=== PATIENT | male | born 1930 | race Caucasian/White ===

== ENCOUNTER 2017-04-09 13:17 | Emergency (ER) | payer MEDICARE, OTHER ==
[~2017-04-09] VITALS: Ht 165.1 cm; Wt 70.0 kg
[2017-04-09] MEDS ORDERED: SODIUM CHLORIDE FLUSH 10ML SYR IVF ONE (14:00)
[2017-04-09] MEDS ORDERED: KETOROLAC 30 MG/1 ML IVPush ONE (14:00)
[2017-04-09] MEDS ORDERED: KETOROLAC 30 MG/1 ML ONE (14:35)
[2017-04-09 14:44] LABS: BLOOD UREA NITROGEN 20 mg/dL (7-18)
[2017-04-09 14:50] LABS: IS PT STATUS REG ER OR PRE ER? YES
[2017-04-09 16:38] VITALS: BP 169/91
== END 2017-04-09 16:41 | disposition home or self-care (01) ==
LOC: ED 16:35
DX: L03.116 Cellulitis of left lower limb (principal)
CPT/HCPCS: 36415; 71010; 73610; 80048; 82040; 83605; 83880; 84484; 85025; 93005; 96374; 99285; J1885

== ENCOUNTER 2017-04-10 11:31 | Emergency (ER) | payer MEDICARE, OTHER ==
[~2017-04-10] VITALS: Ht 165.1 cm; Wt 68.1 kg
[2017-04-10 11:51] VITALS: BP 190/78
== END 2017-04-10 12:24 | disposition home or self-care (01) ==
LOC: ED 12:15
DX: Z76.0 Encounter for issue of repeat prescription (principal)
CPT/HCPCS: 11760; 99283

== ENCOUNTER 2017-09-24 13:07 | Inpatient (IN) | payer MEDICARE, OTHER ==
[~2017-09-24] VITALS: Ht 165.1 cm; Wt 64.9 kg
[2017-09-24] MEDS ORDERED: SODIUM CHLORIDE FLUSH 10ML SYR IVF ONE ×2 (13:30→14:00)
[2017-09-24] MEDS ORDERED: ACETAMINOPHEN 500 MG TABLET ONE (13:58)
[2017-09-24] MEDS ORDERED: ACETAMINOPHEN 500 MG TABLET PO ONE (14:00)
[2017-09-24] MEDS ORDERED: SODIUM CHLORIDE 0.9% 1,000ML IVBOLUS ONE ×2 (14:00→15:00)
[2017-09-24] MEDS ORDERED: ACETAMINOPHEN 650 MG SUPP ONE (14:06)
[2017-09-24 14:11] LABS: INTERNATIONAL NORMALIZED RATIO 1.13 (0.93-1.1); PROTHROMBIN TIME 11.7 Seconds (9.6-11.5)
[2017-09-24 14:13] LABS: ALANINE AMINOTRANSFERASE 30 U/L (12-78); ALBUMIN 2.7 g/dL (3.4-5.0); ANION GAP 9 mmol/L (5-15); CALCIUM 8.3 mg/dL (8.5-10.1); CHLORIDE 109 mmol/L (98-107); CREATININE 1.16 mg/dL (0.7-1.3)
[2017-09-24 14:17] LABS: ALKALINE PHOSPHATASE 93 U/L (45-117); BILIRUBIN,TOTAL 0.9 mg/dL (0.2-1.0); TOTAL PROTEIN 9.1 g/dL (6.4-8.2); TROPONIN I 0.017 ng/mL (0.000-0.045)
[2017-09-24] MEDS ORDERED: ACETAMINOPHEN 650 MG SUPP PR ONE (14:30)
[2017-09-24] MEDS ORDERED: SODIUM CHLORIDE 0.9% 1,000 ML IV ONE (14:35)
[2017-09-24 14:40] LABS: MEAN CORPUSCULAR HEMOGLOBIN 30.9 pg (27.5-34.5); MEAN CORPUSCULAR HGB CONC 33.8 g/dL (33.2-36.2); MEAN CORPUSCULAR VOLUME 91.4 fL (81-97); RED BLOOD COUNT 3.91 x10^6/uL (4.38-5.82)
[2017-09-24 14:42] LABS: MD YES; MEAN PLATELET VOLUME 8.3 fL (7.4-10.4); PLATELET COUNT 79 x10^3/uL (130-400)
[2017-09-24 14:52] LABS: BAND#(MANUAL) 0.43 x10^3/uL; BANDS%(MANUAL) 11 % (0-7); LYMPH#(MANUAL) 0.43 x10^3/uL (1-3.4); LYMPHS% (MANUAL) 11 % (22-44); MONOS#(MANUAL) 0.12 x10^3/uL (0.3-2.7); MONOS% (MANUAL) 3 % (2-9); SEG#(MANUAL) 2.93 x10^3/uL (1.8-6.8); SEGS% (MANUAL) 75 % (42-75)
[2017-09-24 14:53] LABS: <PLATELET ESTIMATE> DECREASED; <PLT MORPHOLOGY> NORMAL PLT MORPH
[2017-09-24 14:54] LABS: ANISOCYTOSIS 1+; ROULEAUX 1+
[2017-09-24] MEDS ORDERED: CEFTRIAXONE PMX 1GM/50ML 50 ML IVPB ONE (15:00)
[2017-09-24] MEDS ORDERED: CEFTRIAXONE PMX 1GM/50ML 50 ML ONE (15:06)
[2017-09-24 15:08] LABS: MICROSCOPIC NOT IND
[2017-09-24 15:10] LABS: CULTURE INDICATED? NO
[2017-09-24] MEDS ORDERED: CELE200C PO (15:11)
[2017-09-24 15:21] LABS: AMPHETAMINE SCREEN, URINE Negative (Negative); BARBITURATE SCREEN, URINE Negative (Negative); BENZODIAZEPINE SCREEN, URINE Negative (Negative); CANNABINOID SCREEN, URINE Negative (Negative); COCAINE SCREEN, URINE Negative (Negative); METHADONE SCREEN, URINE Negative (Negative); OPIATE SCREEN, URINE Negative (Negative)
[2017-09-24 15:59] LABS: RAPID INFLUENZA A POSITIVE (Negative); RAPID INFLUENZA B Negative (Negative)
[2017-09-24] MEDS ORDERED: POLYETHYLENE GLYCOL 17 GM PACKET PO PRN (17:00)
[2017-09-24] MEDS ORDERED: ONDANSETRON ODT 4 MG PO PRN (17:00)
[2017-09-24] MEDS ORDERED: ONDANSETRON 2MG/ML, 2ML IVPush PRN (17:00)
[2017-09-24] MEDS ORDERED: DOCUSATE 100 MG CAPSULE PO PRN (17:00)
[2017-09-24] MEDS ORDERED: GUAIFENESIN/DM 200-20MG, 10ML UDC PO PRN (17:00)
[2017-09-24] MEDS ORDERED: ACETAMINOPHEN 325 MG TABLET PO PRN (17:00)
[2017-09-24] MEDS ORDERED: ENOXAPARIN 40 MG/0.4 ML SQ SCH (17:00)
[2017-09-24 17:54] VITALS: BP 143/66
[2017-09-24] MEDS: SODIUM CHLORIDE 0.9% 1,000 ML IV SCH (18:35)
[2017-09-24 20:30] VITALS: BP 140/86
[2017-09-24] MEDS: BENZONATATE 100 MG CAPSULE PO SCH (22:05)
[2017-09-24] MEDS: OSELTAMIVIR 6 MG/ML ORAL SUSP PO SCH (22:05)
[2017-09-25 02:23] VITALS: BP 152/82
[2017-09-25] MEDS: SODIUM CHLORIDE 0.9% 1,000 ML IV SCH ×3 (02:42→17:40)
[2017-09-25 05:21] LABS: MEAN CORPUSCULAR HEMOGLOBIN 30.8 pg (27.5-34.5); MEAN CORPUSCULAR HGB CONC 33.6 g/dL (33.2-36.2); MEAN CORPUSCULAR VOLUME 91.6 fL (81-97); RED BLOOD COUNT 3.35 x10^6/uL (4.38-5.82); RED CELL DISTRIBUTION WIDTH 16.3 % (9.4-14.8)
[2017-09-25 05:22] LABS: ALBUMIN 2.1 g/dL (3.4-5.0); ANION GAP 7 mmol/L (5-15); CALCIUM 7.6 mg/dL (8.5-10.1); CHLORIDE 115 mmol/L (98-107)
[2017-09-25 05:26] LABS: ALANINE AMINOTRANSFERASE 22 U/L (12-78); ALKALINE PHOSPHATASE 68 U/L (45-117); BILIRUBIN,TOTAL 0.9 mg/dL (0.2-1.0); CREATININE 0.93 mg/dL (0.7-1.3); TOTAL PROTEIN 7.5 g/dL (6.4-8.2)
[2017-09-25 05:42] LABS: MEAN PLATELET VOLUME 8.4 fL (7.4-10.4); PLATELET COUNT 56 x10^3/uL (130-400)
[2017-09-25 05:43] LABS: MD YES
[2017-09-25 05:45] LABS: BAND#(MANUAL) 1.33 x10^3/uL; BANDS%(MANUAL) 26 % (0-7); LYMPH#(MANUAL) 1.17 x10^3/uL (1-3.4); LYMPHS% (MANUAL) 23 % (22-44); MONOS#(MANUAL) 0.05 x10^3/uL (0.3-2.7); MONOS% (MANUAL) 1 % (2-9); SEG#(MANUAL) 2.55 x10^3/uL (1.8-6.8); SEGS% (MANUAL) 50 % (42-75)
[2017-09-25 05:46] LABS: <PLATELET ESTIMATE> DECREASED; <PLT MORPHOLOGY> NORMAL PLT MORPH; ANISOCYTOSIS 1+; MICROCYTOSIS 1+
[2017-09-25 07:06] VITALS: BP 132/53
[2017-09-25] MEDS ORDERED: MAGNESIUM SULFATE PMX 4GM/100M 100 ML IV ONE (08:00)
[2017-09-25] MEDS: BENZONATATE 100 MG CAPSULE PO SCH ×4 (09:36→21:58)
[2017-09-25] MEDS: AMOXICILLIN/CLAV 875-125MG TABLET PO SCH ×2 (09:36→21:58)
[2017-09-25] MEDS: OSELTAMIVIR 6 MG/ML ORAL SUSP PO SCH ×2 (09:36→21:58)
[2017-09-25 12:10] VITALS: BP 157/61
[2017-09-25] MEDS ORDERED: GADOBUTROL 7.5 MMOL/7.5 ML PFS ONE (17:50)
[2017-09-25 20:00] VITALS: BP 186/84
[2017-09-25 20:49] VITALS: BP 159/65
[2017-09-26] VITALS (8 sets, daily range): BP systolic 140–195; BP diastolic 60–125
[2017-09-26] MEDS: SODIUM CHLORIDE 0.9% 1,000 ML IV SCH ×4 (02:16→23:28)
[2017-09-26 04:57] LABS: MEAN CORPUSCULAR HEMOGLOBIN 30.8 pg (27.5-34.5); MEAN CORPUSCULAR HGB CONC 33.5 g/dL (33.2-36.2); MEAN CORPUSCULAR VOLUME 91.9 fL (81-97); MEAN PLATELET VOLUME 8.1 fL (7.4-10.4); PLATELET COUNT 59 x10^3/uL (130-400)
[2017-09-26 05:00] LABS: ANION GAP 6 mmol/L (5-15); CALCIUM 7.5 mg/dL (8.5-10.1); CHLORIDE 115 mmol/L (98-107); CREATININE 0.92 mg/dL (0.7-1.3)
[2017-09-26 05:40] LABS: MD YES
[2017-09-26 05:42] LABS: BAND#(MANUAL) 0.14 x10^3/uL; BANDS%(MANUAL) 3 % (0-7); LYMPHS% (MANUAL) 26 % (22-44); MONOS#(MANUAL) 0.14 x10^3/uL (0.3-2.7); MONOS% (MANUAL) 3 % (2-9); SEG#(MANUAL) 3.13 x10^3/uL (1.8-6.8); SEGS% (MANUAL) 68 % (42-75)
[2017-09-26 05:43] LABS: ANISOCYTOSIS 1+; MICROCYTOSIS 1+
[2017-09-26 05:44] LABS: <PLATELET ESTIMATE> DECREASED; <PLT MORPHOLOGY> NORMAL PLT MORPH
[2017-09-26] MEDS: OSELTAMIVIR 6 MG/ML ORAL SUSP PO SCH ×2 (09:19→20:48)
[2017-09-26] MEDS: AMOXICILLIN/CLAV 875-125MG TABLET PO SCH ×2 (09:19→20:48)
[2017-09-26] MEDS: BENZONATATE 100 MG CAPSULE PO SCH ×3 (09:19→20:48)
[2017-09-26] MEDS: LABETALOL 5MG/ML, 20ML IVPush PRN ×2 (09:20→20:48)
[2017-09-26] MEDS: ENALAPRILAT 1.25 MG/ML, 2ML IVPush PRN (22:42)
[2017-09-27] VITALS (7 sets, daily range): BP systolic 139–198; BP diastolic 65–85
[2017-09-27] MEDS ORDERED: hydrALAzine 20 MG/ML, 1ML IV ONE (03:00)
[2017-09-27 05:31] LABS: MEAN CORPUSCULAR HEMOGLOBIN 31.1 pg (27.5-34.5); MEAN CORPUSCULAR HGB CONC 33.3 g/dL (33.2-36.2); MEAN CORPUSCULAR VOLUME 93.4 fL (81-97); MEAN PLATELET VOLUME 8.4 fL (7.4-10.4); PLATELET COUNT 82 x10^3/uL (130-400); RED BLOOD COUNT 3.35 x10^6/uL (4.38-5.82); RED CELL DISTRIBUTION WIDTH 16.4 % (9.4-14.8)
[2017-09-27 05:36] LABS: ANION GAP 7 mmol/L (5-15); CALCIUM 7.3 mg/dL (8.5-10.1); CHLORIDE 116 mmol/L (98-107); CREATININE 0.93 mg/dL (0.7-1.3)
[2017-09-27 06:48] LABS: BASOPHILS # (AUTO) 0.02 x10^3/uL (0-0.1); BASOPHILS % (AUTO) 0 % (0-1); EOSINOPHILS # (AUTO) 0.06 x10^3/uL (0-0.4); EOSINOPHILS % (AUTO) 1 % (1-7); LYMPHOCYTES # (AUTO) 0.89 x10^3/uL (1-3.4); LYMPHOCYTES % (AUTO) 20 % (22-44); MD SCAN; MONOCYTES # (AUTO) 0.17 x10^3/uL (0.2-0.8); MONOCYTES % (AUTO) 4 % (2-9); NEUTROPHILS % (AUTO) 75 % (42-75)
[2017-09-27] MEDS: AMOXICILLIN/CLAV 875-125MG TABLET PO SCH ×2 (08:20→21:09)
[2017-09-27] MEDS: BENZONATATE 100 MG CAPSULE PO SCH ×3 (08:20→21:09)
[2017-09-27] MEDS: OSELTAMIVIR 6 MG/ML ORAL SUSP PO SCH ×2 (08:20→21:09)
[2017-09-27] MEDS: SODIUM CHLORIDE 0.9% 1,000 ML IV SCH ×2 (10:30→16:56)
[2017-09-28 01:09] VITALS: BP 173/61
[2017-09-28] MEDS: SODIUM CHLORIDE 0.9% 1,000 ML IV SCH ×2 (02:30→10:36)
[2017-09-28 06:43] VITALS: BP 175/62
[2017-09-28] MEDS: ENALAPRILAT 1.25 MG/ML, 2ML IVPush PRN (07:21)
[2017-09-28] MEDS: OSELTAMIVIR 6 MG/ML ORAL SUSP PO SCH ×2 (08:20→22:22)
[2017-09-28] MEDS: BENZONATATE 100 MG CAPSULE PO SCH ×3 (08:20→22:21)
[2017-09-28] MEDS: AMOXICILLIN/CLAV 875-125MG TABLET PO SCH ×2 (08:20→22:21)
[2017-09-28] MEDS: AMLODIPINE 5 MG TABLET PO SCH (08:20)
[2017-09-28 10:34] VITALS: BP 160/62
[2017-09-28 13:03] VITALS: BP 156/74
[2017-09-28 20:34] VITALS: BP 167/73
[2017-09-29] MEDS: LABETALOL 5MG/ML, 20ML IVPush PRN (02:52)
[2017-09-29 03:23] VITALS: BP 173/80
[2017-09-29 06:50] VITALS: BP 176/82
[2017-09-29] MEDS: AMOXICILLIN/CLAV 875-125MG TABLET PO SCH ×2 (07:50→20:40)
[2017-09-29] MEDS: OSELTAMIVIR 6 MG/ML ORAL SUSP PO SCH (07:50)
[2017-09-29] MEDS: AMLODIPINE 5 MG TABLET PO SCH (07:50)
[2017-09-29] MEDS: BENZONATATE 100 MG CAPSULE PO SCH ×3 (07:50→20:40)
[2017-09-29 09:26] VITALS: BP 141/48
[2017-09-29 12:49] VITALS: BP 142/78
[2017-09-29 19:10] VITALS: BP 174/65
[2017-09-29] MEDS: ENALAPRILAT 1.25 MG/ML, 2ML IVPush PRN (20:41)
[2017-09-30 01:32] VITALS: BP 160/80
[2017-09-30 07:00] VITALS: BP 152/72
[2017-09-30] MEDS: BENZONATATE 100 MG CAPSULE PO SCH (09:03)
[2017-09-30] MEDS: AMLODIPINE 5 MG TABLET PO SCH (09:03)
[2017-09-30 10:05] VITALS: BP 105/70
== END 2017-09-30 13:34 | DRG 871 ==
LOC: ED 15:51 → EDIP 16:02 → 4NOR 17:52
PROVIDERS: ADMIT Hospitalist; ATTEND Family Medicine
DX: A41.9 Sepsis, unspecified organism (principal); G93.40 Encephalopathy, unspecified; E44.1 Mild protein-calorie malnutrition; D69.6 Thrombocytopenia, unspecified; E83.51 Hypocalcemia; E87.6 Hypokalemia; I10 Essential (primary) hypertension; J10.1 Influenza due to other identified influenza virus with other respiratory manifestations; J32.0 Chronic maxillary sinusitis; R65.20 Severe sepsis without septic shock; Z68.23 Body mass index [BMI] 23.0-23.9, adult
CPT/HCPCS: 36415; 70450; 70553; 71045; 80048; 80053; 80307; 81003; 82140; 83605; 83735; 84100; 84484; 85025; 85610; 85730; 87040; 87400; 93005; 96361; 96365; A9585; J0696; J0360; J3475; J7030

== ENCOUNTER 2018-01-10 04:48 | Inpatient (IN) | payer MEDICARE, OTHER ==
[~2018-01-10] VITALS: Ht 167.6 cm; Wt 55.7 kg
[~2018-01-10 04:48] MED LIST: CELE200C PO
[2018-01-10] MEDS ORDERED: SODIUM CHLORIDE FLUSH 10ML SYR IVF ONE (05:00)
[2018-01-10] MEDS ORDERED: HYDR-3237 PO (05:07)
[2018-01-10] MEDS ORDERED: AMLO5TAB2 PO (05:07)
[2018-01-10] MEDS ORDERED: TRAM50TA2 PO (05:07)
[2018-01-10] MEDS ORDERED: FLUO15CR2 TP (05:07)
[2018-01-10 05:40] LABS: MEAN CORPUSCULAR HEMOGLOBIN 31.7 pg (27.5-34.5); MEAN CORPUSCULAR HGB CONC 34.1 g/dL (33.2-36.2); MEAN PLATELET VOLUME 7.5 fL (7.4-10.4); PLATELET COUNT 70 x10^3/uL (130-400); RED BLOOD COUNT 3.44 x10^6/uL (4.38-5.82); RED CELL DISTRIBUTION WIDTH 16.2 % (9.4-14.8)
[2018-01-10 05:43] LABS: ALANINE AMINOTRANSFERASE 21 U/L (12-78); ALBUMIN 2.7 g/dL (3.4-5.0); ANION GAP 6 mmol/L (5-15); CALCIUM 8.5 mg/dL (8.5-10.1); CHLORIDE 108 mmol/L (98-107); CREATININE 1.08 mg/dL (0.7-1.3)
[2018-01-10 05:47] LABS: ALKALINE PHOSPHATASE 97 U/L (45-117); TOTAL PROTEIN 9.2 g/dL (6.4-8.2); TROPONIN I < 0.015 ng/mL (0.000-0.045)
[2018-01-10 05:50] LABS: BILIRUBIN,TOTAL 0.6 mg/dL (0.2-1.0)
[2018-01-10 05:59] LABS: BASOPHILS # (AUTO) 0.01 x10^3/uL (0-0.1); BASOPHILS % (AUTO) 0 % (0-1); EOSINOPHILS # (AUTO) 0.09 x10^3/uL (0-0.4); EOSINOPHILS % (AUTO) 3 % (1-7); LYMPHOCYTES % (AUTO) 36 % (22-44); MD SCAN; MONOCYTES # (AUTO) 0.25 x10^3/uL (0.2-0.8); MONOCYTES % (AUTO) 8 % (2-9); NEUTROPHILS # (AUTO) 1.62 x10^3/uL (1.8-6.8); NEUTROPHILS % (AUTO) 53 % (42-75)
[2018-01-10] MEDS ORDERED: NS + 20MEQ KCL 1,000 ML IV SCH (07:03)
[2018-01-10] MEDS ORDERED: ONDANSETRON ODT 4 MG PO PRN (07:30)
[2018-01-10] MEDS ORDERED: POLYETHYLENE GLYCOL 17 GM PACKET PO PRN (07:30)
[2018-01-10] MEDS ORDERED: BISACODYL 10 MG SUPP PR PRN (07:30)
[2018-01-10] MEDS ORDERED: ACETAMINOPHEN 325 MG TABLET PO PRN (07:30)
[2018-01-10 08:03] VITALS: BP 198/84
[2018-01-10] MEDS: hydrALAzine 20 MG/ML, 1ML IVPush PRN ×2 (08:20→13:53)
[2018-01-10] MEDS: AMLODIPINE 5 MG TABLET PO SCH (08:20)
[2018-01-10 10:40] VITALS: BP 129/57
[2018-01-10 12:30] LABS: TROPONIN I 0.016 ng/mL (0.000-0.045)
[2018-01-10 12:53] VITALS: BP 174/72
[2018-01-10 13:49] VITALS: BP 168/73
[2018-01-10] MEDS: FLUOCINONIDE CRM 0.05%, 15GM TP SCH ×2 (13:50→21:25)
[2018-01-10 13:52] VITALS: BP 170/74
[2018-01-10 18:15] LABS: TROPONIN I 0.016 ng/mL (0.000-0.045)
[2018-01-10 19:40] VITALS: BP 169/68
[2018-01-10] MEDS: HYDROcodone/APAP 5/325 TABLET PO SCH (21:00)
[2018-01-11 00:19] VITALS: BP 189/81
[2018-01-11 04:47] VITALS: BP 172/75
[2018-01-11] MEDS: hydrALAzine 20 MG/ML, 1ML IVPush PRN ×3 (04:51→20:25)
[2018-01-11 06:24] LABS: MEAN CORPUSCULAR HEMOGLOBIN 31.6 pg (27.5-34.5); MEAN CORPUSCULAR HGB CONC 34.1 g/dL (33.2-36.2); MEAN CORPUSCULAR VOLUME 92.9 fL (81-97); RED BLOOD COUNT 3.71 x10^6/uL (4.38-5.82); RED CELL DISTRIBUTION WIDTH 16.5 % (9.4-14.8)
[2018-01-11 06:31] LABS: ANION GAP 7 mmol/L (5-15); CALCIUM 8.9 mg/dL (8.5-10.1); CHLORIDE 112 mmol/L (98-107)
[2018-01-11 06:38] LABS: CHOL/HDL RATIO 2.3; CHOLESTEROL, TOTAL 120 mg/dL (140-239); CREATININE 0.98 mg/dL (0.7-1.3); HDL CHOL % 44 % (26-37); HDL CHOLESTEROL (DIRECT) 53 mg/dL (40-60); LDL CHOLESTEROL,CALCULATED 46 mg/dL (54-169); LDL/HDL RATIO 0.9 (0.5-3.0); TRIGLYCERIDES 103 mg/dL (50-200); VLDL CHOLESTEROL 21 mg/dL (0-25)
[2018-01-11 06:52] VITALS: BP 181/79
[2018-01-11 07:04] LABS: MEAN PLATELET VOLUME 7.7 fL (7.4-10.4); PLATELET COUNT 79 x10^3/uL (130-400)
[2018-01-11 07:29] LABS: BASOPHILS # (AUTO) 0.01 x10^3/uL (0-0.1); BASOPHILS % (AUTO) 0 % (0-1); EOSINOPHILS # (AUTO) 0.06 x10^3/uL (0-0.4); EOSINOPHILS % (AUTO) 2 % (1-7); LYMPHOCYTES # (AUTO) 1.25 x10^3/uL (1-3.4); LYMPHOCYTES % (AUTO) 38 % (22-44); MD SCAN; MONOCYTES # (AUTO) 0.26 x10^3/uL (0.2-0.8); MONOCYTES % (AUTO) 8 % (2-9); NEUTROPHILS # (AUTO) 1.75 x10^3/uL (1.8-6.8); NEUTROPHILS % (AUTO) 53 % (42-75)
[2018-01-11] MEDS: AMLODIPINE 5 MG TABLET PO SCH (07:51)
[2018-01-11] MEDS: FLUOCINONIDE CRM 0.05%, 15GM TP SCH ×2 (07:52→20:24)
[2018-01-11] MEDS ORDERED: MAGNESIUM SULFATE PMX 2GM/50ML 50 ML IV ONE (11:00)
[2018-01-11 12:46] VITALS: BP 158/79
[2018-01-11] MEDS: DOCUSATE 100 MG CAPSULE PO PRN (13:43)
[2018-01-11] MEDS ORDERED: METOPROLOL TARTRATE 25 MG TABLET PO SCH (18:00)
[2018-01-11 19:27] VITALS: BP 175/85
[2018-01-11] MEDS: HYDROcodone/APAP 5/325 TABLET PO SCH (20:28)
[2018-01-12 01:02] VITALS: BP 168/66
[2018-01-12 05:40] LABS: MEAN CORPUSCULAR HEMOGLOBIN 31.5 pg (27.5-34.5); MEAN CORPUSCULAR HGB CONC 33.8 g/dL (33.2-36.2); MEAN CORPUSCULAR VOLUME 93.2 fL (81-97); MEAN PLATELET VOLUME 7.6 fL (7.4-10.4); PLATELET COUNT 76 x10^3/uL (130-400); RED BLOOD COUNT 3.58 x10^6/uL (4.38-5.82)
[2018-01-12 05:44] LABS: CHLORIDE 114 mmol/L (98-107)
[2018-01-12 05:56] LABS: ANION GAP 7 mmol/L (5-15); CALCIUM 8.8 mg/dL (8.5-10.1); CREATININE 0.96 mg/dL (0.7-1.3)
[2018-01-12 06:14] LABS: BASOPHILS # (AUTO) 0.01 x10^3/uL (0-0.1); BASOPHILS % (AUTO) 0 % (0-1); EOSINOPHILS # (AUTO) 0.06 x10^3/uL (0-0.4); EOSINOPHILS % (AUTO) 2 % (1-7); LYMPHOCYTES # (AUTO) 0.94 x10^3/uL (1-3.4); LYMPHOCYTES % (AUTO) 28 % (22-44); MD SCAN; MONOCYTES # (AUTO) 0.29 x10^3/uL (0.2-0.8); MONOCYTES % (AUTO) 9 % (2-9); NEUTROPHILS # (AUTO) 2.11 x10^3/uL (1.8-6.8); NEUTROPHILS % (AUTO) 62 % (42-75)
[2018-01-12 06:37] VITALS: BP 176/74
[2018-01-12] MEDS: hydrALAzine 20 MG/ML, 1ML IVPush PRN (06:42)
[2018-01-12] MEDS: FLUOCINONIDE CRM 0.05%, 15GM TP SCH ×2 (08:17→22:10)
[2018-01-12] MEDS: AMLODIPINE 5 MG TABLET PO SCH (08:17)
[2018-01-12] MEDS: DOCUSATE 100 MG CAPSULE PO PRN (08:17)
[2018-01-12] MEDS ORDERED: PINK LADY ENEMA 1,000 ML PR SCH (12:00)
[2018-01-12 12:35] VITALS: BP 123/58
[2018-01-12 19:04] VITALS: BP 128/70
[2018-01-12] MEDS: HYDROcodone/APAP 5/325 TABLET PO SCH (21:00)
[2018-01-13 02:10] VITALS: BP 158/66
[2018-01-13 07:10] VITALS: BP 144/77
[2018-01-13] MEDS: FLUOCINONIDE CRM 0.05%, 15GM TP SCH (09:12)
[2018-01-13] MEDS: AMLODIPINE 5 MG TABLET PO SCH (09:12)
== END 2018-01-13 12:10 | disposition home health service (06) | DRG 311 ==
LOC: ED 06:19 → INTOOBSV 06:28 → EDIP 06:28 → 4EST 07:37 → OBSVTOIN 01-11 15:33
PROVIDERS: ADMIT Hospitalist; ATTEND Hospitalist
DX: I24.9 Acute ischemic heart disease, unspecified (principal); N17.0 Acute kidney failure with tubular necrosis; E44.0 Moderate protein-calorie malnutrition; D61.818 Other pancytopenia; I47.2 Ventricular tachycardia; Z68.1 Body mass index [BMI] 19.9 or less, adult; R07.2 Precordial pain; G89.29 Other chronic pain; I11.9 Hypertensive heart disease without heart failure; I34.0 Nonrheumatic mitral (valve) insufficiency; K59.00 Constipation, unspecified; Z66 Do not resuscitate; Z79.82 Long term (current) use of aspirin; Z83.3 Family history of diabetes mellitus
CPT/HCPCS: 36415; 71045; 71260; 74018; 74177; 80048; 80053; 80061; 83735; 84484; 85025; 93005; 93306; G0103; G0378; J3480; J0360; J3475